=== PATIENT | female | born 1960 | race Two or more races ===

== ENCOUNTER 2016-07-21 20:18 | Emergency (ER) | payer OTHER ==
[~2016-07-21] VITALS: Ht 172.7 cm; Wt 71.7 kg
[~2016-07-21 20:18] MED LIST: ACET1TAB12 PO; AMIT25TA9 PO; ERGO2000 PO; GLIP5TAB13 PO; GLYB5TAB7 PO; IBUP-1482 PO; METF500T4 PO; PANT40TA4 PO; PRED10TA23 PO
--- NOTE | 2016-07-21 21:02 | NUR ---
Patient discharged to home in stable conditon. Written and verbal after care instructions given. Patient verbalizes understanding of instructions. Ambulated from Er with stable gait. All belongings with patient.
[2016-07-21 21:03] VITALS: BP 116/72
== END 2016-07-21 21:03 | disposition home or self-care (01) ==
LOC: ER 20:18
DX: H66.91 Otitis media, unspecified, right ear (principal); K21.9 Gastro-esophageal reflux disease without esophagitis; E11.9 Type 2 diabetes mellitus without complications; Z88.1 Allergy status to other antibiotic agents
CPT/HCPCS: 99283; A4663

== ENCOUNTER 2017-04-18 15:04 | Emergency (ER) | payer OTHER ==
[~2017-04-18] VITALS: Ht 172.7 cm; Wt 77.1 kg
[~2017-04-18 15:04] MED LIST changes: -IBUP-1482 PO; +IBUP-1957 PO
[2017-04-18] MEDS ORDERED: BISM262T18 PO (15:31)
[2017-04-18] MEDS ORDERED: PYRI180T PO (15:31)
[2017-04-18] MEDS ORDERED: TRAZ-144 PO (15:31)
--- NOTE | 2017-04-18 15:55 | NUR ---
Patient discharged to home in stable conditon. Written and verbal after care instructions given. Patient verbalizes understanding of instructions.PT WALKS IN STEADY GAIT, NICOLE CH DIZZINESS.
== END 2017-04-18 15:56 | disposition home or self-care (01) ==
LOC: ER 15:05
DX: G70.00 Myasthenia gravis without (acute) exacerbation (principal); K21.9 Gastro-esophageal reflux disease without esophagitis; E11.9 Type 2 diabetes mellitus without complications; Z79.84 Long term (current) use of oral hypoglycemic drugs; R19.7 Diarrhea, unspecified; Z88.1 Allergy status to other antibiotic agents
CPT/HCPCS: 99283; A4663

== ENCOUNTER 2017-05-14 01:15 | Emergency (ER) | payer OTHER ==
[~2017-05-14] VITALS: Ht 172.7 cm; Wt 77.1 kg
[~2017-05-14 01:15] MED LIST changes: -ACET1TAB12 PO; -AMIT25TA9 PO; +BISM262T18 PO; -GLIP5TAB13 PO; -GLYB5TAB7 PO; -IBUP-1957 PO; -METF500T4 PO; +METF500T6 PO; +PYRI180T PO; +TRAZ-144 PO
[2017-05-14] MEDS ORDERED: IVIG (01:50)
--- NOTE | 2017-05-14 02:00 | NUR ---
[facility] AT BEDSIDE FOR MSE.
--- NOTE | 2017-05-14 02:15 | NUR ---
LAB AT PT BEDSIDE FOR BLOOD DRAW.
--- NOTE | 2017-05-14 02:40 | NUR ---
XRAY AT PT BEDSIDE.
[2017-05-14 02:41] LABS: BASOPHILS # (AUTO) 0.1 K/uL (0.0-8.0); BASOPHILS % (AUTO) 0.7 % (0.0-2.0); EOSINOPHILS # (AUTO) 0.1 K/uL (0.0-0.7); EOSINOPHILS % (AUTO) 0.9 % (0.0-7.0); HEMATOCRIT 29.5 % (31.2-41.9); HEMOGLOBIN 9.1 g/dL (10.9-14.3); LYMPHOCYTES # (AUTO) 2.4 K/uL (20.0-40.0); LYMPHOCYTES % (AUTO) 28.1 % (20.5-51.5); MEAN CORPUSCULAR HEMOGLOBIN 20.8 uug (24.7-32.8); MEAN CORPUSCULAR HGB CONC 31 g/dL (32.3-35.6); MEAN CORPUSCULAR VOLUME 67.5 fL (75.5-95.3); MONOCYTES # (AUTO) 0.7 K/uL (2.0-10.0); MONOCYTES % (AUTO) 7.6 % (0.0-11.0); NEUTROPHILS # (AUTO) 5.4 K/uL (1.8-8.9); NEUTROPHILS % (AUTO) 62.7 % (38.5-71.5); PLATELET COUNT (AUTO) 441 K/uL (179-408); RED BLOOD CELL COUNT(AUTO) 4.37 MIL/uL (3.63-4.92); WHITE BLOOD COUNT (AUTO) 8.7 K/uL (3.8-11.8)
[2017-05-14 02:43] LABS: CREATININE 0.9 mg/dL (0.6-1.3); POTASSIUM 3.5 mmol/L (3.5-5.1)
[2017-05-14 02:55] LABS: BILIRUBIN,DIRECT 0.1 mg/dL (0.0-0.2); BILIRUBIN,TOTAL 0.4 mg/dL (0.2-1.0)
--- NOTE | 2017-05-14 03:37 | NUR ---
PT AMBULATED TO AND FROM BATHROOM INDEPENDENTLY W/ STEADY GAIT. DENIES DIZZINESS OR SOB.
[2017-05-14] MEDS ORDERED: NORMAL SALINE FLUSH 10 ML DISP.SYRIN ONE (04:08)
[2017-05-14] MEDS ORDERED: IV NORMAL SALINE 100 ML ONE (04:08)
[2017-05-14] MEDS ORDERED: IOHEXOL 350 100 ML INFUS..BTL ONE (04:08)
--- NOTE | 2017-05-14 04:14 | NUR ---
PT AMBULATED TO AND FROM BATHROOM INDEPENDENTLY W/ STEADY GAIT. DENIES DIZZINESS OR SOB.
[2017-05-14] MEDS ORDERED: ACETAMINOPHEN ES 500 MG TABLET ONE (04:28)
[2017-05-14] MEDS: ACETAMINOPHEN 325 MG TABLET PO ONE (04:28)
--- NOTE | 2017-05-14 05:04 | NUR ---
PT TAKEN VIA WHEELCHAIR BY [employer]PER[employer] FOR CT ANGIO.
--- NOTE | 2017-05-14 05:46 | NUR ---
[facility] PAG[facility] FOR TO DR AMOR REGARDING PT ADMISSION.
[2017-05-14] MEDS ORDERED: ENOXAPARIN SODIUM 80 MG/0.8 ML DISP.SYRIN SQ ONE (05:59)
[2017-05-14] MEDS: ENOXAPARIN SODIUM 80 MG/0.8 ML DISP.SYRIN SQ ONE (06:05)
--- NOTE | 2017-05-14 06:05 | NUR ---
Patient does not wish to proceed with medical care recommended by Dr. BERTRAND. Patient given information related to possible complications, up to and including , which could occur as a result of leaving the hospital at this time. Patient verbalizes understanding of risks involved due to leaving against medical advice. Patient has signed AMA form.
--- NOTE | 2017-05-14 06:20 | NUR ---
Patient discharged AMA. Written and verbal after care instructions given. Pt states she will follow up w/ [facility]. Patient verbalizes understanding of instructions. Pt given copies of reports. Pt took all personal belongings.
[2017-05-14 06:41] VITALS: BP 118/74
== END 2017-05-14 06:42 | disposition left against medical advice (07) ==
LOC: ER 01:23
DX: I26.09 Other pulmonary embolism with acute cor pulmonale (principal); Z88.1 Allergy status to other antibiotic agents; Z88.5 Allergy status to narcotic agent; Z79.891 Long term (current) use of opiate analgesic; Z79.84 Long term (current) use of oral hypoglycemic drugs; Z79.899 Other long term (current) drug therapy; Z53.29 Procedure and treatment not carried out because of patient's decision for other reasons
CPT/HCPCS: 36415; 70030-TC; 71045; 71275; 85025; 85730; 93005; A4663; A9150; J1650; J3490; Q9967

== ENCOUNTER 2018-08-29 19:56 | Emergency (ER) | payer OTHER ==
[~2018-08-29] VITALS: Ht 172.7 cm; Wt 519.4 kg
[~2018-08-29 19:56] MED LIST changes: +IVIG; +METF-440 PO; -METF500T6 PO; -TRAZ-144 PO; +TRAZ-182 PO
--- NOTE | 2018-08-29 20:16 | NUR ---
Patient ambulated with stable gait. Speech is clear, speaks in complete sentences. A/Ox4. No neuro deficits. Patient came for RLQ abdominal pain started about a week ago. Was seen about a month ago at [facility] ER for the same complaint, was sent home with oral ATB's but problem still persists. Pain 7/10, radiates from RLQ around to the lower back/flank area. Denies any n/v/d. Denies any urinary distress.
[2018-08-29 20:34] LABS: *BILIRUBIN,URIN NEGATIVE (NEGATIVE); *BLOOD, URINE 1+ (NEGATIVE); *CLARITY,URINE SLIGHTLY CLOUDY (CLEAR); *COLOR,URINE YELLOW (YELLOW); *KETONES,URINE TRACE (NEGATIVE); *UROBILINOGEN,URINE 0.2 E.U./dl (NORMAL); LEUKOCYTE ESTERASE ,URINE 2+ (NEGATIVE); NITRITE, URINE POSITIVE (NEGATIVE)
[2018-08-29 20:35] LABS: UGLUCOSE 2+ (NEGATIVE)
--- NOTE | 2018-08-29 20:38 | NUR ---
Patient transported to CT
--- NOTE | 2018-08-29 20:45 | NUR ---
Patient back in bed from CT
[2018-08-29 20:52] LABS: BACTERIA,URINE MANY /HPF (NONE SEEN); SQUAMOUS EPITHELIAL CELL,UR FEW /HPF (NONE SEEN); WBC,URINE 20-50 /HPF (0-3)
--- NOTE | 2018-08-29 22:10 | NUR ---
Patient discharged to home in stable conditon. Written and verbal after care instructions given. Patient verbalizes understanding of instructions. Patient ambulated with stable gait.
[2018-08-29 22:13] VITALS: BP 120/78
[2018-08-29] MEDS ORDERED: CEphaleXIN 500 MG CAPSULE PO ONE (22:15)
== END 2018-08-29 22:14 | disposition home or self-care (01) ==
LOC: ER 19:56
DX: N12 Tubulo-interstitial nephritis, not specified as acute or chronic (principal); E11.9 Type 2 diabetes mellitus without complications; Z88.5 Allergy status to narcotic agent; Z88.1 Allergy status to other antibiotic agents; Z79.899 Other long term (current) drug therapy
CPT/HCPCS: 87077; 87086; A4663

== ENCOUNTER 2018-09-20 22:26 | Emergency (ER) | payer OTHER ==
[~2018-09-20] VITALS: Ht 172.7 cm; Wt 83.9 kg
--- NOTE | 2018-09-20 22:50 | NUR ---
Pt. up to use restroom, ambulates w/ steady gait, urine specimen collected and sent to lab - cloudy in appearance,
[2018-09-20 23:18] LABS: *BILIRUBIN,URIN NEGATIVE (NEGATIVE); *BLOOD, URINE 1+ (NEGATIVE); *CLARITY,URINE CLOUDY (CLEAR); *COLOR,URINE YELLOW (YELLOW); *KETONES,URINE NEGATIVE (NEGATIVE); *UROBILINOGEN,URINE 0.2 E.U./dl (NORMAL); LEUKOCYTE ESTERASE ,URINE 3+ (NEGATIVE); NITRITE, URINE NEGATIVE (NEGATIVE); PH,URINE 6.5 (5.0-8.0)
[2018-09-20 23:20] LABS: UGLUCOSE 1+ (NEGATIVE)
[2018-09-20 23:26] LABS: BACTERIA,URINE MANY /HPF (NONE SEEN); SQUAMOUS EPITHELIAL CELL,UR FEW /HPF (NONE SEEN); WBC,URINE TNTC /HPF (0-3)
--- NOTE | 2018-09-21 00:16 | NUR ---
Patient discharged to home in stable conditon. Written and verbal after care instructions given. Patient verbalizes understanding of instructions. WALKED OUT OF ER WITH NO DISTRESS
[2018-09-21 00:18] VITALS: BP 128/65
== END 2018-09-21 00:19 | disposition home or self-care (01) ==
LOC: ER 22:28
DX: N39.0 Urinary tract infection, site not specified (principal); E11.9 Type 2 diabetes mellitus without complications; Z88.5 Allergy status to narcotic agent; Z88.1 Allergy status to other antibiotic agents; Z79.899 Other long term (current) drug therapy
CPT/HCPCS: 87077; 87086; A4663

== ENCOUNTER 2018-12-19 07:26 | Emergency (ER) | payer OTHER ==
[~2018-12-19] VITALS: Ht 172.7 cm; Wt 83.9 kg
[2018-12-19] MEDS ORDERED: MYCO500T PO (07:48)
[2018-12-19] MEDS ORDERED: METF-442 PO (07:48)
[2018-12-19] MEDS ORDERED: PYRI60TA PO (07:48)
[2018-12-19] MEDS ORDERED: AMOX500C2 PO (07:48)
--- NOTE | 2018-12-19 08:42 | NUR ---
Pt was seen by .
[2018-12-19 08:54] VITALS: BP 138/68
--- NOTE | 2018-12-19 08:55 | NUR ---
Pt was discharged home.Discharge instruction given to pt.Verbalized understanding.
== END 2018-12-19 08:55 | disposition home or self-care (01) ==
LOC: ER 07:26
DX: J40 Bronchitis, not specified as acute or chronic (principal); R07.89 Other chest pain; E11.9 Type 2 diabetes mellitus without complications; Z88.5 Allergy status to narcotic agent; Z88.1 Allergy status to other antibiotic agents; Z79.2 Long term (current) use of antibiotics; Z79.899 Other long term (current) drug therapy
CPT/HCPCS: 71045; A4663

== ENCOUNTER 2019-05-17 03:33 | Emergency (ER) | payer OTHER ==
[~2019-05-17] VITALS: Ht 165.1 cm; Wt 77.6 kg
--- NOTE | 2019-05-17 03:43 | NUR ---
Patient arrived at the [facility] with c/o lower back pain radiating to left leg for 2 weeks but worse tonight.
--- NOTE | 2019-05-17 03:45 | NUR ---
Dr. Cordoba on bedside for MSE.
[2019-05-17] MEDS ORDERED: HYDROMORPHONE 2 MG/1 ML DISP.SYRIN ONE (03:51)
[2019-05-17] MEDS ORDERED: ONDANSETRON 4 MG/2 ML VIAL ONE (03:51)
--- NOTE | 2019-05-17 03:58 | NUR ---
Patient discharged to home in stable conditon. Written and verbal after care instructions given. Patient verbalizes understanding of instructions. Pt ambulated out of the ER with steady gait. All belongings with pt.
[2019-05-17 03:59] VITALS: BP 112/60
[2019-05-17] MEDS ORDERED: ONDANSETRON 4 MG/2 ML VIAL IM ONE (04:00)
[2019-05-17] MEDS ORDERED: HYDROMORPHONE 1 MG/1 ML DISP.SYRIN IM ONE (04:00)
== END 2019-05-17 04:00 | disposition home or self-care (01) ==
LOC: ER 03:37
DX: M54.42 Lumbago with sciatica, left side (principal); E11.9 Type 2 diabetes mellitus without complications; Z88.5 Allergy status to narcotic agent; Z88.1 Allergy status to other antibiotic agents; Z79.2 Long term (current) use of antibiotics; Z79.899 Other long term (current) drug therapy
CPT/HCPCS: 96372 ×2; 99284; J1170; J2405; A4663